=== PATIENT | male | born 1985 | race African-American/Black ===

== ENCOUNTER 2018-04-23 12:39 | Emergency (ER) | payer MEDICAID, OTHER ==
[~2018-04-23] VITALS: Ht 180.3 cm; Wt 61.2 kg
[2018-04-23 12:53] VITALS: BP 134/79
== END 2018-04-23 14:41 | disposition home or self-care (01) ==
LOC: ER 12:53
DX: C20 Malignant neoplasm of rectum (principal); K59.00 Constipation, unspecified; F17.210 Nicotine dependence, cigarettes, uncomplicated; F12.90 Cannabis use, unspecified, uncomplicated

== ENCOUNTER 2018-05-20 09:12 | Emergency (ER) | payer MEDICAID ==
[~2018-05-20] VITALS: Ht 180.3 cm; Wt 60.3 kg
[2018-05-20 09:19] VITALS: BP 102/69
[2018-05-20 09:39] LABS: Basophils # (auto) 0 uL; Basophils % (auto) 0.3 % (0.0-2.0); Eosinophils # (auto) 0.3 uL; Eosinophils % (auto) 6.5 % (0.0-7.0); Hematocrit 42.1 % (41.0-53.0); Hemoglobin 13.9 g/dL (13.5-17.5); Lymphocytes # (auto) 0.8 uL; Lymphocytes % (auto) 15.1 % (10.0-50.0); Mean Corpuscular Hemoglobin 29.5 pg (28.0-32.0); Mean Corpuscular Volume 89.3 fL (80.0-100.0); Monocytes # (auto) 0.5 uL; Monocytes % (auto) 10.1 % (0.0-12.0); Neutrophils # (auto) 3.4 uL; Platelet Count (auto) 228 10^3/uL (140-450); Red Blood Cells 4.71 10^6/uL (4.5-5.90); Red Cell Distribution Width 13.7 % (11.8-14.3)
[2018-05-20 09:54] LABS: Albumin 3.7 g/dL (3.4-5.0); BUN/Creatinine Ratio 12.9; Magnesium 2.2 mg/dL (1.6-2.6); Potassium 3.6 mmol/L (3.5-5.1)
[2018-05-20 10:06] LABS: Bilirubin, Total 0.4 mg/dL (0.2-1.0); Total Protein 7.3 g/dL (6.4-8.2)
== END 2018-05-20 10:45 | disposition left against medical advice (07) ==
LOC: ER 09:12
DX: K64.9 Unspecified hemorrhoids (principal); F17.210 Nicotine dependence, cigarettes, uncomplicated; F12.90 Cannabis use, unspecified, uncomplicated
CPT/HCPCS: 36415; 74176; 80053; 83735; 85025

== ENCOUNTER 2018-11-06 11:59 | Emergency (ER) | payer MEDICAID ==
[~2018-11-06] VITALS: Ht 180.3 cm; Wt 59.0 kg
[~2018-11-06 11:59] MED LIST: ENO40SY SC; HYDR-4833 PO
[2018-11-06 15:21] VITALS: BP 118/69
== END 2018-11-06 16:45 | disposition home or self-care (01) ==
LOC: ER 11:59
DX: C21.8 Malignant neoplasm of overlapping sites of rectum, anus and anal canal (principal); Z45.2 Encounter for adjustment and management of vascular access device; Z92.21 Personal history of antineoplastic chemotherapy; Z93.3 Colostomy status; Z87.891 Personal history of nicotine dependence; F12.10 Cannabis abuse, uncomplicated
CPT/HCPCS: 96374